=== PATIENT | male | born 2000 | race Caucasian/White ===

== ENCOUNTER 2023-04-20 18:49 | Emergency (ER) | payer OTHER, SELFPAY | END 2023-04-20 19:31 | disposition home or self-care (01) | LOC: NAV ERS 18:49 | DX: T75.3XXA Motion sickness, initial encounter (principal); R09.82 Postnasal drip; X58.XXXA Exposure to other specified factors, initial encounter; Y93.89 Activity, other specified | CPT/HCPCS: 99282 ==